=== PATIENT | male | born 1985 | race Caucasian/White ===

== ENCOUNTER 2022-03-01 23:44 | Emergency (ER) | payer SELFPAY ==
[2022-03-02 00:02] LABS: BILIRUBIN,URINE NEGATIVE (NEGATIVE); GLUCOSE, URINE (UA) NEGATIVE (NEGATIVE); KETONES,URINE (UA) NEGATIVE (NEGATIVE); LEUKOCYTE ESTERASE, URINE NEGATIVE (NEGATIVE); NITRITE,URINE NEGATIVE (NEGATIVE); OCCULT BLOOD,URINE NEGATIVE (NEGATIVE); PROTEIN,URINE NEGATIVE (NEGATIVE); UROBILINOGEN,URINE 0.2 (NORMAL) E.U./dL (NORMAL)
[2022-03-02 00:03] LABS: CLARITY,URINE CLEAR (CLEAR)
--- NOTE | 2022-03-02 00:24 | ED Physician Documentation ---
PD HPI BACK PAIN - Stated complaint Stated Complaint: BACK PX - Chief complaint Chief Complaint: Back Pain - History of Present Illness Timing - onset: How many days ago (2-3) Timing - details: Abrupt onset, Intermittant Pain level now: 4 Location: Lower, Right, Left Quality: Pain Associated symptoms: Hematuria. No: Fever, Weakness, Numbness, Incontinent of urine, Unable to urinate, Incontinent of stool Improves with: Nothing Worsened by: Other (no ameliorating factors) Similar symptoms before: No diagnosis Recently seen: Not recently seen - Additional information Additional information: c/o 2-3 days of episodic hematuria and low back pain. He has had hematuria at times without back pain. The back pain was left lower back but tonight it became severe and is across lower back. He noted hematospermia recently as well. He says he has had episodes of hematuria x 2 years and was going to be referred to urology by primary care provider, was told someone would contact him regarding the referral and he did not pursue the follow up (the discussion with his PCP was over a year ago) as he was not having pain with hematuria (until these past 2-3 days) as well as concerns he had regarding potential cost of following through with the referral. Denies fever, denies injury. Review of Systems Constitutional: denies: Fever, Chills, Sweats GI: reports: Reviewed and negative : reports: Hematuria. denies: Dysuria, Frequency, Discharge Musculoskeletal: reports: Back pain PD PAST MEDICAL HISTORY - Past Medical History Past Medical History: No - Present Medications Home Medications: Ambulatory Orders Medication Instructions Recorded Confirmed oxyCODONE/ACET 5/325 [Percocet 5 1 - 2 each PO Q6H PRN #14 tablet 03/02/22 mg/325 mg] - Allergies Allergies/Adverse Reactions: Allergies Allergy/AdvReac Type Severity Reaction Status Date / Time pollen extracts Allergy Respiratory Verified 03/01/22 23:52 - Living Situation Living Arrangement: reports: At home PD ED PE NORMAL - Vitals Vital signs reviewed: Yes - General General: Alert and oriented X 3, Well developed/nourished, Other (appears to be in mild/moderate discomfort during H+P) - Cardiac Cardiac: RRR, No murmur - Respiratory Respiratory: No respiratory distress, Clear bilaterally - Abdomen Abdomen: Soft, Non tender - Back Back: No CVA TTP Results - Vitals Vitals: Oxygen O2 Source Room air - Labs Labs: Laboratory Tests 03/01/22 23:56 Urine Color YELLOW Urine Clarity CLEAR Urine pH 6.0 Ur Specific [place] 1.025 Urine Protein NEGATIVE Urine Glucose (UA) NEGATIVE Urine Ketones NEGATIVE Urine Occult Blood NEGATIVE Urine Nitrite NEGATIVE Urine Bilirubin NEGATIVE Urine Urobilinogen 0.2 (NORMAL) Ur Leukocyte Esterase NEGATIVE Ur Microscopic Review NOT INDICATED Urine Culture Comments NOT INDICATED - Rads (name of study) CT A/P Radiology: Prelim report reviewed, See rad report PD MEDICAL DECISION MAKING - ED course Complexity details: reviewed results, re-evaluated patient, considered differential, d/w patient ED course: No abnormalities on UA (including no blood on macro) and CT A/P only notable for left intrarenal calculus. He is given 10mg PO oxycodone early in ED stay and on reevaluation he is in NAD and reports feeling much improved. Results d/w patient including lack of apparent cause of symptoms at this time. I explained to him that the left kidney stone is not causing his symptoms. It is possible he had ureterolithiasis that resolved but this is unlikely given lack of hematuria and would expect some degree of residual hydronephrosis and/or hydroureter. Advised to pursue outpatient follow up with urology, which will likely require a new referral. Return precautions discussed Departure - Departure Disposition: 01 Home, Self Care Clinical Impression: Back pain Condition: Good Instructions: ED Acute Pain [facility] Prescriptions: oxyCODONE/ACET 5/325 [Percocet 5 mg/325 mg] 1 - 2 each PO Q6H PRN #14 tablet PRN Reason: Pain Comments: Your urinalysis is normal tonight and the CT scan does not show an apparent cause of your symptoms. The CT scan shows a left-sided kidney stone, but it is in the kidney; kidney stones do not cause symptoms until they leave the kidney and get stuck in the ureter (the connection from the kidney to the bladder). The stone seen on the CT scan might cause symptoms (such as left-sided pain and blood in the urine) at some point, but nothing can nor needs to be done until / unless such symptoms develop. Staying hydrated can help prevent kidney stones from forming as well as making it less likely for stones in the kidney to become larger (and thus harder to pass). As we discussed, based on your symptoms and previous / recent episodes of blood in the urine and ejaculate, I recommend following up with a urologist. Please return to the emergency department if your symptoms worsen, or if you develop new/concerning signs/symptoms (such as fever, abdominal pain, testicular pain) Discharge Date/Time: 03/02/22 02:40
[2022-03-02] MEDS ORDERED: oxyCODONE 5 MG TABLET PO STA (00:54)
--- NOTE | 2022-03-02 01:25 | CT Report ---
PROCEDURE: Abdomen/Pelvis WO INDICATIONS: hematuria, right flank pain TECHNIQUE: Noncontrast 5 mm thick sections acquired from the diaphragms to the symphysis. 5 mm coronal and sagi ttal reformats were then performed. For radiation dose reduction, the following was used: automated exposure control, adjustment of mA and/or kV according to patient size. COMPARISON: None. FINDINGS: Image quality: Excellent. ABDOMEN: Lung bases: Lung bases are clear. Heart size is normal. Solid organs: Liver and spleen are normal in size. Gallbladder is within normal limits. Pancreas i s normal in contours. No adrenal nodules. Kidneys are normal in size. A 4 mm nonobstructing stone i s seen in mid to lower pole of left kidney. No hydronephrosis or hydroureter. No perinephric fat stra nding. Peritoneum and bowel: Unenhanced bowel loops demonstrate normal wall thickness and caliber. No free fluid or air. Appendix is visualized and is within normal limits. Nodes and vessels: No retroperitoneal or mesenteric adenopathy by size criteria. Aorta and inferior vena cava are normal in caliber. Miscellaneous: No ventral hernias. PELVIS: Genitourinary: Bladder wall thickness is normal. Miscellaneous: No inguinal hernias or adenopathy. Bones: No suspicious bony lesions. No vertebral body compression fractures. IMPRESSION: 1. Nonobstructing stone in mid pole of left kidney. No hydronephrosis or hydroureter. No gross abnorm ality is seen in urinary bladder. 2. Normal appendix. No bowel obstruction. No abnormal bowel wall thickening. No free fluid of free ai r. Reviewed by: Aram Diaz MD on 03/02/2022 1:31 AM PDT Approved by: Aram Diaz MD on 03/02/2022 1:31 AM PDT Station ID: [id number]
[2022-03-02 02:42] VITALS: BP 130/93
== END 2022-03-02 02:40 | disposition home or self-care (01) ==
LOC: ED 23:44
DX: M54.50 Low back pain, unspecified (principal)
CPT/HCPCS: 74176; 81003; 99284; A9270; 81001; 87086

== ENCOUNTER 2022-05-11 18:14 | Emergency (ER) | payer MEDICAID ==
--- NOTE | 2022-05-11 19:16 | XRAY Report ---
PROCEDURE: Hand 3 View RT INDICATIONS: punched mirror TECHNIQUE: 3 Goo views of the hand(s) acquired. COMPARISON: None FINDINGS: Bones: No fractures or dislocations. No suspicious bony lesions. Soft tissues: No suspicious soft tissue calcifications. IMPRESSION: Normal right hand Reviewed by: Saurav Rodriguez on 05/11/2022 7:14 PM [facility] Approved by: Saurav Rodriguez on 05/11/2022 7:14 PM [facility] Station ID: [id number]
[2022-05-11] MEDS ORDERED: lidocaine 1% 20 ML MDV SUBQ ONE (19:55)
--- NOTE | 2022-05-11 20:11 | ED Physician Documentation ---
History of Present Illness - Stated complaint Stated Complaint: HAND INJ - Chief complaint Chief Complaint: Laceration - Additonal information Additional information: 36-year-old male presents emergency department for evaluation Lacerations to the right hand. Tetanus is up-to-date as of 2016. He was at home became frustrated and angry and punched a mirror. Has multiple small cuts to his hand and fingers but the most dominant lacerations are to the index finger over the PIP joint and right thumb over the DIP joint. He is right-hand dominant. Review of Systems Skin: reports: Laceration (s) PD PAST MEDICAL HISTORY - Past Surgical History Past Surgical History: Yes HEENT: Other - Present Medications Home Medications: Ambulatory Orders Medication Instructions Recorded Confirmed oxyCODONE/ACET 5/325 [Percocet 5 1 - 2 each PO Q6H PRN #14 tablet 03/02/22 mg/325 mg] - Allergies Allergies/Adverse Reactions: Allergies Allergy/AdvReac Type Severity Reaction Status Date / Time pollen extracts Allergy Respiratory Verified 03/01/22 23:52 - Social History Does the pt smoke?: No Smoking Status: Never smoker Does the pt drink ETOH?: No Does the pt have substance abuse?: No - Immunizations Immunizations are current?: Yes - POLST Patient has POLST: No PD ED PE EXPANDED - Extremities Extremities: Right hand (Macerated stellate lesion/laceration over the DIP joint of the right thumb. Bleeding briskly. Flexion extension preserved. Neurovascular intact), Right finger(s) (2 lacerations over the PIP joint of the right index finger measuring approximately 3 cm in total length. Neurovascularly intact. Preserved flexion extension against resistance.) Results - Vitals Vitals: Vital Signs - 24 hr 05/11/22 05/11/22 18:37 19:24 Temperature 37.2 C Heart Rate 75 Respiratory 19 16 Rate Blood Pressure 144/100 H O2 Saturation 100 Oxygen O2 Source Room air Procedures - Laceration (location) right hand Length in cm: 6 Wound type: Stellate, Irregular, Into subcut fat, Clean Neurovascular status: Sensory intact, Motor intact, Vascular intact Tendon involvement: Tendon intact Anesthesia: Lidocaine 1% Wound preparation: Chlorhexadine, Irrigated copiously NS, debridement of wound edges (traumatic laceration/avulsion), Extensive undermining Skin layer closure: Nylon, Interrupted, Size #-0 - enter number (4), Sutures - enter # (10), Other (Macerated right thumb laceration approximated with a total of 5 sutures.) Other: Patient tolerated well, No complications, Neurovascular intact PD MEDICAL DECISION MAKING - ED course Complexity details: reviewed results, re-evaluated patient, considered di fferential, d/w patient ED course: 36-year-old male presents emergency department for evaluation macerated laceration to his right index finger at the PIP joint as well as the right thumb at the DIP joint after punching a mirror. A total of 10 sutures was placed. The thumb was difficult to achieve Hemostasis. His tetanus is up-to-date. We did discuss usual routine care as well as emergent return precautions for concerns of infection. Departure - Departure Disposition: 01 Home, Self Care Clinical Impression: Laceration of right thumb Qualifiers: Encounter type: initial encounter Damage to nail status: without damage Foreign body presence: without foreign body Qualified Code(s): S61.011A - Laceration without foreign body of right thumb without damage to nail, initial encounter Laceration of right index finger Qualifiers: Encounter type: initial encounter Damage to nail status: without damage Foreign body presence: without foreign body Qualified Code(s): S61.210A - Laceration without foreign body of right index finger without damage to nail, initial encounter Condition: Stable Record reviewed to determine appropriate education?: Yes Instructions: ED Laceration Hand Comments: Your suture(s) should be removed in 7 to 10 days. In 24 hours you may remove the dressing wash gently with warm soap and water, apply any antibiotic ointment and a simple bandage. Your tetanus is up-to-date. The laceration to your right thumb is rather macerated. It is important that your thumb remains splinted while this is healing. I expect it will take 1 to 2 weeks for this to be healed. Please attempt to keep your wound clean and dry. Do not submerge it in dirty dishwater or bath water. Return to the emergency department if you have any concerns of infection such as redness, fevers milky drainage increased pain.
[2022-05-11 20:28] VITALS: BP 135/84
== END 2022-05-11 21:01 | disposition home or self-care (01) ==
LOC: ED 18:14
DX: S61.011A Laceration without foreign body of right thumb without damage to nail, initial encounter (principal); S61.210A Laceration without foreign body of right index finger without damage to nail, initial encounter; W22.8XXA Striking against or struck by other objects, initial encounter; Y92.009 Unspecified place in unspecified non-institutional (private) residence as the place of occurrence of the external cause
CPT/HCPCS: 12002; 99283